=== PATIENT | female | born 1995 | race Caucasian/White ===

== ENCOUNTER → 2019-06-17 19:33 | Observation (INO) ==
[2019-06-17 17:12] LABS: Bilirubin,Urine Negative (Negative); Blood,Urine Negative (Negative); Clarity,Urine Clear (Clear); Color,Urine Yellow (Yellow); Glucose,Urine (UA) Normal (Normal); Ketones,Urine Negative (Negative); Leukocyte Esterase,Urine Small (Negative); Nitrite,Urine Negative (Negative); PH,Urine 6.5 pH Units (5.0-8.0); Protein,Urine Negative (Neg-Trace); Specific Gravity,Urine 1.008 (1.010-1.025); Urobilinogen,Urine Normal (Normal)
[2019-06-17 17:15] LABS: Bacteria,Urine None Seen per hpf (None-Few); Hyaline Casts,Urine None Seen per lpf (None-Few); RBC,Urine 0-3 per hpf (0-3); Squamous Epithelial Cell,Urine Many per lpf (None-Few); WBC,Urine 0-3 per hpf (0-3)
[2019-06-17 19:00] LABS: Gardnerella DNA DETECTED (Not Detect); Trichomonas DNA Not Detected (Not Detect)
[2019-06-17 19:01] LABS: Candida DNA DETECTED (Not Detect)
== END | disposition home or self-care (01) ==
LOC: 1NENULAB
PROVIDERS: ADMIT Registered Nurse; ATTEND Registered Nurse

== ENCOUNTER → 2019-10-03 08:35 | Observation (INO) | END | disposition home or self-care (01) | LOC: 1NENULAB | PROVIDERS: ADMIT Registered Nurse; ATTEND Registered Nurse ==

== ENCOUNTER 2019-10-03 16:26 | Inpatient (IN) ==
[~2019-10-03 16:26] MED LIST: *HR* FentaNYL (PF) 100 MCG/2 ML VIAL IVP PRN; Azithromycin 500 MG in 0.9 % Sodium Chloride 250 ML IVPB PRN; Famotidine 20 MG/2 ML VIAL IVP PRN; Lidocaine 1% 20 ML MDV INFILT PRN; Metoclopramide 10 MG/2 ML VIAL IVP PRN; Naloxone 0.4 MG/ML INJ IVP PRN; Ondansetron 4 MG/2 ML VIAL IVP PRN
[2019-10-03] MEDS ORDERED: Penicillin G Potassium 5,000,000 UNIT in 0.9 % Sodium Chloride Mini Bag 100 ML IVPB ONE (16:29)
[2019-10-03] MEDS ORDERED: Ringers Solution, Lactated 1,000 ML IVC SCH (16:30)
[2019-10-03] MEDS ORDERED: Oxytocin 20 units/ LR 1000 mL 20 UNIT/1,000 ML BAG IVC SCH (17:45)
[2019-10-03 17:48] LABS: Hematocrit 36.9 % (35.3-44.9); Hemoglobin 11.8 g/dL (11.5-15.4); Mean Corpuscular Hemoglobin 27.8 pg (28.0-33.3); Mean Corpuscular Volume 86.8 fL (83.0-100.0); Platelet Count 323 K/mcL (140-400); Red Blood Count 4.25 M/mcL (3.82-4.97); Red Cell Distribution Width 13.8 % (11.5-14.5); White Blood Count 12.3 K/mcL (4.3-11.1)
[2019-10-03 17:49] LABS: Mean Platelet Volume 11.5 fL (9.4-12.4)
[2019-10-03 17:50] LABS: Eosinophils # 0.2 K/mcL (0.0-0.6); Eosinophils % 1.3 %; Immature Granulocytes % 0.5 % (0-4); Lymphocytes # 2.7 K/mcL (0.6-4.6); Lymphocytes % 21.9 %; Monocytes # 1.1 K/mcL (0.0-1.3); Monocytes % 9.1 %; Neutrophils # 8.2 K/mcL (1.6-8.9)
[2019-10-03] MEDS ORDERED: EPHEDrine 50 MG/ML VIAL IVP PRN (18:23)
[2019-10-03] MEDS ORDERED: *HR* FentaNYL (PF) 100 MCG/2 ML VIAL EP ONE (18:23)
[2019-10-03] MEDS ORDERED: Bupivacaine-MPF 0.25% 10 ML VIAL EP ONE (18:23)
[2019-10-03] MEDS ORDERED: Epidural Premix (fent/bupiv) 110 ML EP ONE (18:27)
[2019-10-03] MEDS ORDERED: Epidural Premix (fent/bupiv) 110 ML EP SCH (18:30)
[2019-10-03] MEDS ORDERED: Penicillin G Potassium 2,500,000 UNIT/105 ML MLS IVPB SCH (20:00)
[2019-10-04] MEDS ORDERED: Measles/Mumps/Rubella Vacc 0.5 ML VIAL SQ PRN (06:26)
[2019-10-04] MEDS ORDERED: Rho Immune Globulin 1,500 UNIT SYRINGE IM PRN (06:26)
[2019-10-04] MEDS ORDERED: Oxytocin 20 units/ LR 1000 mL 20 UNIT/1,000 ML BAG IVC SCH (06:26)
[2019-10-04] MEDS ORDERED: Ibuprofen 600 MG TABLET PO PRN (06:26)
[2019-10-04] MEDS ORDERED: Acetaminophen 325 MG TABLET PO PRN (06:26)
[2019-10-04] MEDS: Prenatal Vit/FA 1 EACH TABLET PO SCH (07:58)
[2019-10-05 06:40] LABS: Basophils % 0.2 %; Eosinophils # 0.3 K/mcL (0.0-0.6); Eosinophils % 1.7 %; Hematocrit 34.1 % (35.3-44.9); Hemoglobin 10.8 g/dL (11.5-15.4); Immature Granulocytes % 0.4 % (0-4); Lymphocytes # 4.3 K/mcL (0.6-4.6); Lymphocytes % 25.6 %; Mean Corpuscular HGB Conc 31.7 g/dL (31.6-35.5); Mean Corpuscular Volume 88.3 fL (83.0-100.0); Mean Platelet Volume 11.1 fL (9.4-12.4); Monocytes # 1.6 K/mcL (0.0-1.3); Monocytes % 9.6 %; Platelet Count 291 K/mcL (140-400); Red Blood Count 3.86 M/mcL (3.82-4.97); Red Cell Distribution Width 14.1 % (11.5-14.5); Segmented Neutrophils % 62.5 %; White Blood Count 16.9 K/mcL (4.3-11.1)
[2019-10-05 06:50] LABS: Neutrophils # 10.6 K/mcL (1.6-8.9)
[2019-10-05 07:17] LABS: Reactive Lymphocytes Present (Not Present)
[2019-10-05 07:18] LABS: Platelet Estimate Normal (Normal)
[2019-10-05] MEDS: Prenatal Vit/FA 1 EACH TABLET PO SCH (07:23)
[2019-10-05 07:57] VITALS: BP 136/89
== END 2019-10-05 11:53 | disposition home or self-care (01) | DRG 807 ==
LOC: 1NENULAB → 1NENUOBS 10-04 06:26
PROVIDERS: ADMIT Student in an Organized Health Care Education/Training Program; ATTEND Student in an Organized Health Care Education/Training Program

== ENCOUNTER → 2021-09-27 16:35 | Observation (INO) ==
[2021-09-27 16:23] LABS: Bacteria,Urine Few per hpf (None-Few); Bilirubin,Urine Negative (Negative); Blood,Urine Negative (Negative); Clarity,Urine Turbid (Clear); Color,Urine Yellow (Yellow); Glucose,Urine (UA) Normal (Normal); Ketones,Urine Negative (Negative); Leukocyte Esterase,Urine Moderate (Negative); Mucus,Urine Moderate per lpf (None-Few); Nitrite,Urine Negative (Negative); PH,Urine 6.5 pH Units (5.0-8.0); Protein,Urine Trace mg/dL (Neg-Trace); RBC,Urine 0-3 per hpf (0-3); Specific Gravity,Urine 1.027 (1.010-1.025); Squamous Epithelial Cell,Urine Moderate per hpf (None-Few); Urobilinogen,Urine Normal (Normal); WBC,Urine 0-3 per hpf (0-3)
== END | disposition home or self-care (01) ==
LOC: 1NENULAB
PROVIDERS: ADMIT Advanced Practice Midwife; ATTEND Advanced Practice Midwife

== ENCOUNTER → 2021-10-30 16:57 | Observation (INO) ==
[2021-10-30 15:49] LABS: Bacteria,Urine Few per hpf (None-Few); Bilirubin,Urine Negative (Negative); Blood,Urine Negative (Negative); Clarity,Urine Clear (Clear); Color,Urine Yellow (Yellow); Glucose,Urine (UA) Normal (Normal); Ketones,Urine Trace mg/dL (Negative); Leukocyte Esterase,Urine Trace (Negative); Mucus,Urine Few per lpf (None-Few); Nitrite,Urine Negative (Negative); Protein,Urine Trace mg/dL (Neg-Trace); RBC,Urine 0-3 per hpf (0-3); Squamous Epithelial Cell,Urine Moderate per hpf (None-Few); Urobilinogen,Urine Normal (Normal); WBC,Urine 0-3 per hpf (0-3)
== END | disposition home or self-care (01) ==
LOC: 1NENULAB
PROVIDERS: ADMIT Obstetrics & Gynecology; ATTEND Obstetrics & Gynecology

== ENCOUNTER → 2022-01-10 21:21 | Observation (INO) ==
[2022-01-10 21:16] LABS: Bacteria,Urine Few per hpf (None-Few); Bilirubin,Urine Negative (Negative); Blood,Urine Negative (Negative); Clarity,Urine Clear (Clear); Color,Urine Colorless (Yellow); Glucose,Urine (UA) Normal (Normal); Ketones,Urine 20 mg/dL (Negative); Leukocyte Esterase,Urine Moderate (Negative); Nitrite,Urine Negative (Negative); Protein,Urine Negative (Neg-Trace); Specific Gravity,Urine 1.008 (1.010-1.025); Squamous Epithelial Cell,Urine Moderate per hpf (None-Few); Urobilinogen,Urine Normal (Normal)
== END | disposition home or self-care (01) ==
LOC: 1NENULAB
PROVIDERS: ADMIT Advanced Practice Midwife; ATTEND Advanced Practice Midwife

== ENCOUNTER → 2022-01-23 01:24 | Observation (INO) | END | disposition home or self-care (01) | LOC: 1NENULAB | PROVIDERS: ADMIT Student in an Organized Health Care Education/Training Program; ATTEND Student in an Organized Health Care Education/Training Program ==

== ENCOUNTER → 2022-01-24 14:23 | Observation (INO) | END | disposition home or self-care (01) | LOC: 1NENULAB | PROVIDERS: ADMIT Obstetrics & Gynecology; ATTEND Obstetrics & Gynecology ==

== ENCOUNTER 2022-01-29 04:51 | Inpatient (IN) ==
[2022-01-29] MEDS ORDERED: Naloxone 0.4 MG/ML INJ IVP PRN ×2 (05:29→14:54)
[2022-01-29] MEDS ORDERED: *HR* Nalbuphine 10 MG/ML AMPUL IV PRN (05:29)
[2022-01-29] MEDS ORDERED: Metoclopramide 10 MG/2 ML VIAL IVP PRN ×2 (05:29→14:54)
[2022-01-29] MEDS ORDERED: Famotidine 20 MG/2 ML VIAL IVP PRN ×2 (05:29→14:54)
[2022-01-29] MEDS ORDERED: Penicillin G Potassium 5,000,000 UNIT in 0.9 % Sodium Chloride Mini Bag 100 ML IVPB ONE (05:46)
[2022-01-29] MEDS ORDERED: Penicillin G Potassium 2,500,000 UNIT/105 ML MLS IVPB SCH (06:00)
[2022-01-29 06:08] LABS: Basophils % 0.2 %; Eosinophils # 0.1 K/mcL (0.0-0.6); Eosinophils % 0.9 %; Hemoglobin 12.2 g/dL (11.5-15.4); Immature Granulocytes % 0.4 % (0-4); Lymphocytes # 4.3 K/mcL (0.6-4.6); Lymphocytes % 32.1 %; Mean Corpuscular HGB Conc 32.1 g/dL (31.6-35.5); Mean Corpuscular Hemoglobin 28.4 pg (28.0-33.3); Mean Corpuscular Volume 88.6 fL (83.0-100.0); Mean Platelet Volume 11.2 fL (9.4-12.4); Monocytes % 7.7 %; Neutrophils # 7.9 K/mcL (1.6-8.9); Platelet Count 382 K/mcL (140-400); Red Blood Count 4.29 M/mcL (3.82-4.97); Red Cell Distribution Width 12.9 % (11.5-14.5); Segmented Neutrophils % 58.7 %; White Blood Count 13.4 K/mcL (4.3-11.1)
[2022-01-29] MEDS: Oxytocin 30 UNIT/503 ML BAG IVC SCH (06:08)
[2022-01-29] MEDS: Ringers Solution, Lactated 1,000 ML IVC SCH ×3 (06:10→16:48)
[2022-01-29] MEDS ORDERED: EPHEDrine sulfate 50 MG/10 ML VIAL IVP PRN (07:42)
[2022-01-29 08:06] LABS: Amphetamine Screen,Urine Negative ng/mL (Cutoff=1000); Barbiturate Screen,Urine Negative ng/mL (Cutoff=200); Benzodiazepines Screen,Urine Negative ng/mL (Cutoff=200); Cannabinoid Screen,Urine Negative ng/mL (Cutoff = 50); Cocaine Screen,Urine Negative ng/mL (Cutoff= 300); Opiate Screen,Urine Negative ng/mL (Cutoff=300); Phencyclidine Screen,Urine Negative ng/mL (Cutoff=25)
[2022-01-29] MEDS: Penicillin G Potassium 2,500,000 UNIT/105 ML MLS IVPB SCH ×4 (10:06→21:57)
[2022-01-29] MEDS: Epidural Premix (fent/bupiv) 110 ML EP SCH ×2 (15:54→23:00)
[2022-01-29] MEDS ORDERED: Ondansetron 4 MG/2 ML VIAL IVP PRN (17:10)
[2022-01-29] MEDS ORDERED: Ondansetron 4 MG/2 ML VIAL ONE (17:13)
[2022-01-29] MEDS ORDERED: *HR* FentaNYL (PF) 100 MCG/2 ML VIAL ONE (23:02)
[2022-01-30] MEDS: Oxytocin 30 UNIT/503 ML BAG IVC SCH (01:36)
[2022-01-30] MEDS ORDERED: Rho Immune Globulin 1,500 UNIT SYRINGE IM PRN (04:03)
[2022-01-30] MEDS ORDERED: Benzocaine/Menthol 56 GM AEROSOL SPRAY TP PRN (04:03)
[2022-01-30] MEDS ORDERED: Measles/Mumps/Rubella Vacc 0.5 ML VIAL SQ PRN (04:03)
[2022-01-30] MEDS ORDERED: Lanolin 7 G OINT...G. TP PRN (04:03)
[2022-01-30] MEDS ORDERED: Ondansetron ODT 4 MG TAB.RAPDIS SL PRN (04:03)
[2022-01-30] MEDS ORDERED: Oxytocin 30 UNIT/503 ML BAG IVC SCH (04:03)
[2022-01-30] MEDS: Prenatal Vit/FA 1 EACH TABLET PO SCH (08:23)
[2022-01-30] MEDS: Ibuprofen 600 MG TABLET PO SCH ×2 (12:56→19:36)
[2022-01-30] MEDS: Acetaminophen 325 MG TABLET PO SCH ×2 (12:57→19:36)
[2022-01-30 19:44] VITALS: O2SAT 98
[2022-01-31 07:46] VITALS: BP 114/70; PULSE 75; TEMP 97.9
[2022-01-31] MEDS: Acetaminophen 325 MG TABLET PO SCH (10:11)
[2022-01-31] MEDS: Ibuprofen 600 MG TABLET PO SCH (10:12)
[2022-01-31] MEDS: Prenatal Vit/FA 1 EACH TABLET PO SCH (10:12)
== END 2022-01-31 11:19 | disposition home or self-care (01) | DRG 807 ==
LOC: 1NENULAB 04:51 → 1NENUOBS 01-30 03:11
PROVIDERS: ADMIT Obstetrics & Gynecology; ATTEND Obstetrics & Gynecology